=== PATIENT | male | born 1990 | race Caucasian/White ===

== ENCOUNTER 2017-11-02 13:13 | Emergency (ER) | payer OTHER ==
[2017-11-02 13:31] VITALS: BP 134/84; PULSE 99; RESP 16; TEMP 98.7
[2017-11-02] MEDS ORDERED: DIPH,PERTUS(ACELL)TETVAC-LF 0.5 ML VIAL IM ONE (14:18)
--- NOTE | 2017-11-02 14:45 | XR ---
First digit left hand HISTORY: Trauma, laceration 3 views of the first digit left hand There is no radiopaque foreign body. Bone mineralization, joint spaces and alignment are maintained. IMPRESSION: No fracture or dislocation.
[2017-11-02] MEDS ORDERED: TOPICAL SKIN ADHESIVE 1 EACH AMP TOPICAL ONE (15:01)
[2017-11-02] MEDS ORDERED: IBUPROFEN 600 MG TAB PO STA (15:15)
--- NOTE | 2017-11-02 15:22 | ED ---
General Adult HPI - General Chief complaint: Wound/Laceration Stated complaint: [facility] - hand lac Time Seen by Provider: 11/02/17 13:49 Source: patient, RN notes reviewed Mode of arrival: wheelchair Limitations: no limitations - History of Present Illness Initial comments: 26-year-old male presents to the emergency department for a chief complaint of right thumb injury occurring about one hour ago while working. Patient states he accidentally cut his right thumb with a knife. Patient states he can move the thumb without difficulty. Patient is not up-to-date on tetanus. Patient denies sustaining any other injuries. Patient requests Motrin for pain medication. Patient has no other complaints at this time including shortness of breath, chest pain, abdominal pain, nausea or vomiting, headache, or visual changes. - Related Data Home Medications Medication Instructions Recorded Confirmed DULoxetine HCL [Cymbalta] 60 mg PO DAILY 11/02/17 11/02/17 Allergies Allergy/AdvReac Type Severity Reaction Status Date / Time amoxicillin Allergy Rash/Hives Verified 11/02/17 13:32 azithromycin Allergy Rash/Hives Verified 11/02/17 13:32 [From Zithromax Z-Geronimo] cephalexin [From Keflex] Allergy Rash/Hives Verified 11/02/17 13:42 clindamycin Allergy Rash/Hives Verified 11/02/17 13:32 Penicillins Allergy Rash/Hives Verified 11/02/17 13:32 Sulfa (Sulfonamide Allergy Rash/Hives Verified 11/02/17 13:32 Antibiotics) sulfamethoxazole Allergy Rash/Hives Verified 11/02/17 13:32 [From Bactrim] trimethoprim [From Bactrim] Allergy Rash/Hives Verified 11/02/17 13:32 Review of Systems ROS Statement: Those systems with pertinent positive or pertinent negative responses have been documented in the HPI. ROS Other: All systems not noted in ROS Statement are negative. Past Medical History Past Medical History: No Reported History History of Any Multi-Drug Resistant Organisms: None Reported Past Surgical History: Adenoidectomy Past Psychological History: Bipolar, Depression Smoking Status: Current every day smoker Past Alcohol Use History: None Reported Past Drug Use History: None Reported General Exam Limitations: no limitations General appearance: alert, in no apparent distress Head exam: Present: atraumatic, normocephalic, normal inspection Eye exam: Present: normal appearance ENT exam: Present: normal exam, mucous membranes moist Neck exam: Present: normal inspection. Absent: tenderness, meningismus, lymphadenopathy Respiratory exam: Present: normal lung sounds bilaterally. Absent: respiratory distress, wheezes, rales, rhonchi, stridor Cardiovascular Exam: Present: regular rate, normal rhythm, normal heart sounds. Absent: systolic murmur, diastolic murmur, rubs, gallop, clicks Extremities exam: Present: full ROM (Full range of motion of the right thumb.), tenderness (Tenderness to the distal aspect of the right thumb.), normal capillary refill (Refill less than 2 seconds and radial pulse 2+ in the right upper extremity.), other (There is a shallow 1 cm laceration of the distal aspect right thumb. Patient appears to have cracked part of the nail.). Absent : joint swelling Course Vital Signs 11/02/17 13:28 Temperature 98.7 F Pulse Rate 99 Respiratory 16 Rate Blood Pressure 134/84 O2 Sat by Pulse 99 Oximetry Procedures - Procedures Initial comment: Patient or guardian consent: the patient or guardian's understanding of the procedure matches consent given Body area: Right thumb Laceration length: 1 cm Foreign bodies: no foreign bodies Tendon involvement: none Nerve involvement: none Vascular damage: no Local anesthetic: none Preparation: Patient was prepped and draped in the usual sterile fashion and wound was cleaned with iodine Irrigation solution: Sterile water Irrigation method: sterile water jet lavage and syringe Skin closure: Dermabond, applied with sterile technique Approximation difficulty: simple Dressing: antibiotic ointment and gauze Patient tolerance: Patient tolerated the procedure well with no immediate complications. Medical Decision Making - Medical Decision Making 26-year-old male presents to the emergency department for a chief complaint of right thumb injury one hour ago at work. Patient states he cut it with a knife. Patient states he thinks his nail protected his finger. Patient has full range of motion of the right thumb including the MCP and IP joint. Patient does have a small laceration to the distal aspect of the right thumb. It appears to have mildly cracked the nail of the right thumb. Wound appears shallow. I recommended numbing the thumb to inspect further but patient refuses. He states he does not like needles and just wants to glue the thumb. X-ray demonstrates no acute fractures, foreign bodies, or dislocations. Thumb was soaked in iodine and sterile water. It was cleaned thoroughly. It was glued with exofin without complication. Patient was educated that he needs to watch for signs of infection or difficulty healing as it is the distal aspect of the thumb and may not heal well. He is to follow up with primary care provider or return to the ER if this occurs. He was also given a tetanus shot in the emergency department. He is aware he can return to the emergency department if he has any worsening symptoms whatsoever. Disposition Clinical Impression: Laceration Disposition: HOME SELF-CARE Condition: Good Instructions: Laceration (ED), Skin Adhesive Care (ED) Additional Instructions: Please monitor for signs of infection such as spreading redness, streaking redness, drainage, or fever and return if these occur. Monitor for healing process as well and return if you notice anything concerning. Follow-up with primary care in 1-2 days. Glue will fall off on its own. Is patient prescribed a controlled substance at d/c from ED?: No Referrals: Fadi Ricardo DO [STAFF PHYSICIAN] - 1-2 days Time of Disposition: 15:21
== END 2017-11-02 15:31 | disposition home or self-care (01) ==
LOC: EC 13:13
DX: S61.111A Laceration without foreign body of right thumb with damage to nail, initial encounter (principal); F31.9 Bipolar disorder, unspecified; F17.200 Nicotine dependence, unspecified, uncomplicated; Z23 Encounter for immunization; Z79.899 Other long term (current) drug therapy; Z88.0 Allergy status to penicillin; Z88.1 Allergy status to other antibiotic agents; Z88.2 Allergy status to sulfonamides; W26.0XXA Contact with knife, initial encounter; Y92.69 Other specified industrial and construction area as the place of occurrence of the external cause
CPT/HCPCS: 12001; 90471; 90715; 99283

== ENCOUNTER 2017-11-04 14:22 | Emergency (ER) | payer OTHER ==
[2017-11-04 14:39] VITALS: BP 138/79; PULSE 107; RESP 16; TEMP 98.6
--- NOTE | 2017-11-04 14:56 | ED ---
Skin/Abscess/FB HPI - General Chief complaint: Skin/Abscess/Foreign Body Stated complaint: reaction-[facility] Time Seen by Provider: 11/04/17 14:48 Source: patient, RN notes reviewed Mode of arrival: ambulatory Limitations: no limitations - History of Present Illness Initial comments: This a 26-year-old male presents emergency Department chief complaint of a rash. Patient states started last day or so. Patient states it's. She worse when he gets hot. Patient states her small little bumps ribs 3 on his extremities. Patient states he did state [place] [address] Patient denies any difficulty breathing difficulty swallowing. Patient was concern initially that he had reaction to adhesive glue. - Related Data Home Medications Medication Instructions Recorded Confirmed DULoxetine HCL [Cymbalta] 60 mg PO DAILY 11/02/17 11/04/17 Previous Rx's Medication Instructions Recorded Permethrin 5% Cream [Elimite] 1 applic TOPICAL ONCE #60 gram 11/04/17 Allergies Allergy/AdvReac Type Severity Reaction Status Date / Time amoxicillin Allergy Rash/Hives Verified 11/04/17 14:49 azithromycin Allergy Rash/Hives Verified 11/04/17 14:49 [From Zithromax Z-Geronimo] cephalexin [From Keflex] Allergy Rash/Hives Verified 11/04/17 14:49 clindamycin Allergy Rash/Hives Verified 11/04/17 14:49 Penicillins Allergy Rash/Hives Verified 11/04/17 14:49 Sulfa (Sulfonamide Allergy Rash/Hives Verified 11/04/17 14:49 Antibiotics) sulfamethoxazole Allergy Rash/Hives Verified 11/04/17 14:49 [From Bactrim] trimethoprim [From Bactrim] Allergy Rash/Hives Verified 11/04/17 14:49 Review of Systems ROS Statement: Those systems with pertinent positive or pertinent negative responses have been documented in the HPI. ROS Other: All systems not noted in ROS Statement are negative. Past Medical History Past Medical History: No Reported History History of Any Multi-Drug Resistant Organisms: None Reported Past Surgical History: Adenoidectomy Past Psychological History: Bipolar, Depression Smoking Status: Current every day smoker Past Alcohol Use History: None Reported Past Drug Use History: None Reported General Exam Limitations: no limitations General appearance: alert, in no apparent distress Head exam: Present: atraumatic, normocephalic, normal inspection ENT exam: Present: normal oropharynx Respiratory exam: Present: normal lung sounds bilaterally. Absent: respiratory distress, wheezes, rales, rhonchi, stridor Cardiovascular Exam: Present: regular rate, normal rhythm, normal heart sounds. Absent: systolic murmur, diastolic murmur, rubs, gallop, clicks Skin exam: Present: warm, dry, intact, normal color, rash (Small erythematous macular papular rashExtremities hospital wellness coordinator at 3 and multiple other areas with excoriations.) Course Vital Signs 11/04/17 14:36 Temperature 98.6 F Pulse Rate 107 H Respiratory 16 Rate Blood Pressure 138/79 O2 Sat by Pulse 98 Oximetry Medical Decision Making - Medical Decision Making 26-year-old male presented for rash. This appears to be scabies in nature. There does not appear to be ALLERGIC. Patient will be started on Permethrin and is advised take Benadryl for the itching. Return parameters discussed Disposition Clinical Impression: Scabies Disposition: HOME SELF-CARE Condition: Stable Instructions: Scabies (ED) Additional Instructions: Take Benadryl [id number] as directed.Please return to the Emergency Department if symptoms worsen or any other concerns. Prescriptions: Permethrin 5% Cream [Elimite] 1 applic TOPICAL ONCE #60 gram Is patient prescribed a controlled substance at d/c from ED?: No Referrals: None,Stated [Primary Care Provider] - 1-2 days Time of Disposition: 14:55
== END 2017-11-04 15:09 | disposition home or self-care (01) ==
LOC: EC 14:22
DX: B86 Scabies (principal); F31.9 Bipolar disorder, unspecified; F17.200 Nicotine dependence, unspecified, uncomplicated; Z79.899 Other long term (current) drug therapy; Z88.0 Allergy status to penicillin; Z88.1 Allergy status to other antibiotic agents; Z88.2 Allergy status to sulfonamides
CPT/HCPCS: 99283